=== PATIENT | female | born 1995 | race Caucasian/White ===

== ENCOUNTER → 2017-05-20 | Outpatient (CLI) | payer OTHER | END | disposition home or self-care (01) | LOC: CFH 07:15 | PROVIDERS: ATTEND Family Medicine | DX: M76.52 Patellar tendinitis, left knee (principal); Z98.890 Other specified postprocedural states ==

== ENCOUNTER 2017-05-23 09:27 | Emergency (ER) | payer OTHER ==
[~2017-05-23] VITALS: Ht 177.8 cm; Wt 87.0 kg
[2017-05-23 09:45] VITALS: BP 132/91
[2017-05-23] MEDS ORDERED: PROPARACAINE OPHTH 0.5%, 15ML ONE (09:59)
[2017-05-23] MEDS ORDERED: FLUORESCEIN OPHTHALMIC 1 MG STRIP ONE (09:59)
== END 2017-05-23 10:28 | disposition home or self-care (01) ==
LOC: ED 10:09
DX: S00.212A Abrasion of left eyelid and periocular area, initial encounter (principal); W55.03XA Scratched by cat, initial encounter; Y93.89 Activity, other specified; Y92.89 Other specified places as the place of occurrence of the external cause; Y99.8 Other external cause status
CPT/HCPCS: 99283